=== PATIENT | female | born 1955 | race Caucasian/White ===

== ENCOUNTER 2016-07-19 10:38 | Day surgery (SDC) | payer OTHER ==
--- NOTE | 2016-07-17 00:16 | GHP ---
[f rep st] PREOP HISTORY AND PHYSICAL DATE OF ADMISSION: 07/19/2016 HISTORY UPON PRESENTATION: The patient is a 60-year-old, G1, P0, A1, white female, who has had postmenopausal bleeding for years. The patient is on hormone replacement with Activella. The patient began having postmenopausal bleeding on the Activella in 2012. In July 2013, she underwent a hysteroscopy that revealed benign polyps at the [facility]. The patient continued to have intermittent spotting after that procedure. The patient had an ultrasound at the [facility] in January 2015, which revealed the uterus 7.8 x 4.6 x 3.4 cm with an endometrial stripe of 8.6 mm. The patient has an anterior fibroid, 2.2 x 2.5 cm. The ovaries at that time appeared normal. The patient was advised to possibly change hormone replacement and was advised to undergo an endometrial biopsy, which the patient declined. Patient was seen by RENOVATOR MACHINE OPERATOR at the [facility] who felt it was okay to forego a biopsy as the patient reported that she had stopped spotting after the prior ultrasound. The patient now reports that all year long, she has continued to have episodes of 3-4 days of bleeding every 1-2 months. Sometimes these are associated with cyclic signs of breast tenderness. The patient was advised again that she needed to proceed with an endometrial biopsy versus proceeding with a hysteroscopy. She would rather proceed under anesthesia with a hysteroscopy. Patient was seen for preoperative evaluation on June 14 at which time, she reports that she had not had any bleeding for 3 weeks. The patient was advised as to the risks and benefits, and the consent form signed. The thought was to remove any polyps or fibroids if found and to perform a D and C if necessary with a hysteroscopy. PAST MEDICAL HISTORY: Scoliosis and back pain, postmenopausal bleeding. Questionable thyroid disorder with prior labs from PCP. PAST SURGICAL HISTORY: Bilateral breast implants. PAST OBSTETRIC HISTORY: First trimester TAB. ALLERGIES: The patient has no known drug allergies. CURRENT MEDICATIONS: Activella daily in the morning, Ambien 3-4 times a week at night. [id number] supplements of calcium, B12, and melatonin. SOCIAL HISTORY: The patient is , lives with her . 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 The patient is a nonsmoker. Alcohol usually 1-2 times a week. No alternative drug use. PHYSICAL EXAMINATION: GENERAL: The patient is a well-developed, well-nourished , white female, in no acute distress. VITAL SIGNS: Blood pressure 100/68. Last weight was 118 pounds. Clinically afebrile. HEENT: Shows no thyromegaly. No adenopathy. LUNGS: Clear to auscultation bilaterally. CARDIOVASCULAR: Regular rate and rhythm. ABDOMEN: Soft and nontender. PELVIC : Performed in March at the time of the patient's annual, and the uterus was small, mobile, and nontender, with no adnexal masses. Pap smear and HPV were performed, which were both negative. There was a small amount of blood noted in the vagina at that time. EXTREMITIES: Nontender. No edema. LABORATORY: From 02/02, labs from the patient's primary care reveal a normal CBC with hemoglobin and hematocrit of 14 and 42, complete metabolic panel that was normal. Cholesterol profile was normal. TSH testing revealed 5.34, which is technically out of range. When patient was seen in March for her annual, she reported that the primary care had told her her labs were all normal. ASSESSMENT: 1. Postmenopausal bleeding, on hormone replacement. 2. History of the uterine polyp was removed in July 2013. 3. Thickened lining that was last assessed in January 2015 due to the patient' s lack of followup. 4. Suspected thyroid imbalance PLAN: The patient agrees to proceed to the operating room for a hysteroscopy and polypectomy or D and C if needed. Risks and benefits discussed and the consent form signed. Will follow up with TSH and free T4 when labs drawn on the day of surgery. /[id number]/MODL MTDD
[~2016-07-19 10:38] MED LIST: SILVER NITRATE APPLICATOR 1 APPL TP ONE
[2016-07-19] MEDS ORDERED: LIDOCAINE 1% 2 ML INJ ONE (11:14)
[2016-07-19] MEDS ORDERED: LIDOCAINE 1% 5 ML SDV ID PRN (11:39)
[2016-07-19] MEDS ORDERED: LR 1,000 ML IV ONE (11:39)
[2016-07-19 11:57] LABS: % IMMATURE GRANULYOCYTES 0.2 % (0.0-1.1); ABSOLUTE IMMATURE GRANULOCYTES 0.01 10^3/uL (0.00-0.10); ADD DIFF? NO; ADD MORPH? NO; ADD SCAN? NO; ATYPICAL LYMPHOCYTE FLAG 10 (0-99); FRAGMENT RBC FLAG 0 (0-99); HEMATOCRIT 41.6 % (38.0-47.0); HEMOGLOBIN 14.3 g/dL (12.6-16.3); LEFT SHIFT FLG 0 (0-99); LIPEMIA HEMOLYSIS FLAG 90 (0-99); MEAN CELL HEMOGLOBIN 31.5 pg (27.9-34.1); MEAN CELL HEMOGLOBIN CONCENTR. 34.4 g/dL (32.4-36.7); MEAN CELL VOLUME 91.6 fL (81.5-99.8); MEAN PLATELET VOLUME 10.9 fL (8.7-11.7); PLATELET CLUMPS FLAG 0 (0-99); PLATELET COUNT 186 10^3/uL (150-400); RED BLOOD CELL COUNT 4.54 10^6/uL (4.18-5.33); RED CELL DISTRIBUTION WIDTH 12.6 % (11.5-15.2)
[2016-07-19] MEDS ORDERED: fentaNYL 100 MCG/2 ML INJ ONE ×2 (12:13→13:44)
[2016-07-19] MEDS ORDERED: PROPOFOL 200 MG/20 ML VIAL ONE ×2 (12:13)
[2016-07-19] MEDS ORDERED: ONDANSETRON 4 MG/2 ML VIAL ONE ×2 (13:19→13:46)
[2016-07-19] MEDS ORDERED: KETOROLAC 30 MG/1 ML SDV ONE (13:19)
[2016-07-19] MEDS ORDERED: PROMETHAZINE HCL 25 MG/ML INJ ONE (13:46)
--- NOTE | 2016-07-19 14:59 | GOP ---
[f rep st] OPERATIVE REPORT DATE OF OPERATION: SURGEON: Sherrill Hickey MD ANESTHESIA: Laryngeal mask anesthesia. ANESTHESIOLOGIST: Buzz Hill DO PREOPERATIVE DIAGNOSIS: Thickened endometrium with postmenopausal bleeding. POSTOPERATIVE DIAGNOSIS: Thickened endometrium with postmenopausal bleeding, with uterine polyp not ed. PROCEDURE PERFORMED: Hysteroscopy with polypectomy. FINDINGS: INDICATIONS: Patient is a 60-year-old, para 0, white female, with postmenopausal bleeding for years . The patient is on hormone replacement with Activella. The bleeding was investigated at the [facility] in 2013. She had a hysteroscopy that revealed benign polyps by the patient's report. The [facility] had an ultrasound in 2014 that revealed an endometrial stripe of 8.6 mm with a small anterior f ibroid. The patient's bleeding is light and she reports compliance with her hormone replacement. T he patient has no other medical disorders other than scoliosis. No other medications. The patient was advised to evaluate the lining again, and rather than having an endometrial biopsy she requested to proceed into the operating room for more definitive removal of a polyp if found. Risks and bene fits were discussed and the consent form signed. DESCRIPTION OF PROCEDURE: The patient was taken to the operating room, where following satisfactory laryngeal mask anesthesia, the patient was placed in dorsal lithotomy position. Prior to coming to the operating room the patient had urinated. The patient was not given any IV antibiotics. She do es have SCDs on her lower extremities. The patient's perineum and vagina were prepped and the patie nt draped in the usual sterile manner for hysteroscopy. Sterile speculum was placed within the vagi na. An atraumatic tenaculum was placed on the anterior lip of the cervix and gentle traction applie d. The cervix was easily dilated up to a #6 Hegar dilator. A small hysteroscope was introduced and the interior cavity appeared normal and there was evidence of a small polyp on the posterior uterin e wall. Otherwise, the lining was thin. Visualization became more difficult and it was determined that the suction was not working on the scope. An additional scope was obtained; however, the camer a was broken on that scope. This added approximately 15 minutes to the case as instruments were blu nged out. No other small scopes were available, so the patient was more fully dilated to introduce the larger scope. A single-tooth tenacula was needed on the anterior lip of the cervix to provide a dequate traction. Cervix was easily dilated up to a 9.5 Hegar dilator. The large hysteroscope was introduced and the same findings noted. The morcellation blade was introduced and the polyp was eas chari removed. The base was morcellated. The tubal ostia appeared normal. Otherwise, there was a th in lining and no other tissue to remove. The endocervical canal appeared normal with no additional tissue. Hysteroscope was removed without any problems. There were no complications with the proced ure itself, other than technical. The single-tooth tenaculum was removed and there was minimal spot ting from the cervix. Total estimated blood loss less than 25 cc. Fluid deficit 110 cc from the hy steroscopy. The patient tolerated the procedure well. [facility] and then [facility] to the recovery room in stable condition. /[id number]/MODL
== END 2016-07-19 15:40 | disposition home or self-care (01) ==
LOC: FSGY 10:38
PROVIDERS: ATTEND Obstetrics & Gynecology
PROC: 0UDB8ZX Extraction of Endometrium, Via Natural or Artificial Opening Endoscopic, Diagnostic (ICD-10-PCS; principal; 2016-07-19 12:00)
DX: N95.0 Postmenopausal bleeding (principal); N84.0 Polyp of corpus uteri; D25.9 Leiomyoma of uterus, unspecified; M41.9 Scoliosis, unspecified; Z79.890 Hormone replacement therapy
CPT/HCPCS: 58558; C1782; J1885; J2405; J2550; J2704; J3010

== ENCOUNTER → 2017-03-09 | Outpatient (CLI) | payer OTHER | LOC: FIMAGING 10:09 | PROVIDERS: ATTEND Obstetrics & Gynecology | DX: Z12.31 Encounter for screening mammogram for malignant neoplasm of breast (principal) ==

== ENCOUNTER → 2017-07-08 | Outpatient (CLI) | payer OTHER | LOC: FIMAGING 10:36 | PROVIDERS: ATTEND Internal Medicine | DX: M85.89 Other specified disorders of bone density and structure, multiple sites (principal); Z79.890 Hormone replacement therapy ==

== ENCOUNTER → 2018-04-05 | Outpatient (CLI) | payer OTHER | LOC: FIMAGING 10:35 | PROVIDERS: ATTEND Obstetrics & Gynecology | DX: Z12.31 Encounter for screening mammogram for malignant neoplasm of breast (principal) ==